=== PATIENT | female | born 1940 | race Caucasian/White ===

== ENCOUNTER → 2018-03-18 | Outpatient (CLI) | payer MEDICARE, BC ==
[~2018-03-18] MED LIST: ASPIRIN 81M81 MG/TA2 PO; BETAPACE 80MG80 MG PO; CENTRUM SILVER1 CTB PO; CITRACAL PLUS1 TAB PO; DITROPAN 5MG TAB5 MG PO; GLUCOTROL 5M5 MG/TAB PO; GLUCOTROL10 MG PO; NORVASC 10MG10 MG PO; PLAVIX 75MG TAB75 MG PO; PREDNISONE1 MG PO; TENORMIN 2525 MG/TAB PO; TYLENOL ARTHRI650 M1 PO; VITAMIN D1000 IU PO; ZOCOR 20MG20 MG; ZOCOR 20MG20 MG PO
== END ==
LOC: MHCPAIN 13:03
DX: M47.817 Spondylosis without myelopathy or radiculopathy, lumbosacral region (principal); M54.16 Radiculopathy, lumbar region
CPT/HCPCS: J1040; Q9967

== ENCOUNTER → 2018-04-21 | Outpatient (CLI) | payer MEDICARE, BC | LOC: MHCPAIN 13:29 | DX: G89.29 Other chronic pain (principal); M47.817 Spondylosis without myelopathy or radiculopathy, lumbosacral region; M54.16 Radiculopathy, lumbar region; M53.3 Sacrococcygeal disorders, not elsewhere classified; M96.1 Postlaminectomy syndrome, not elsewhere classified | CPT/HCPCS: G0463 ==

== ENCOUNTER → 2018-06-02 | Outpatient (CLI) | payer MEDICARE, BC | LOC: COL.RAD 11:35 | DX: M16.12 Unilateral primary osteoarthritis, left hip (principal); I70.202 Unspecified atherosclerosis of native arteries of extremities, left leg ==

== ENCOUNTER → 2018-06-02 | Outpatient (CLI) | payer MEDICARE, BC | LOC: MHCPAIN 10:37 | DX: G89.29 Other chronic pain (principal); M47.817 Spondylosis without myelopathy or radiculopathy, lumbosacral region; M53.3 Sacrococcygeal disorders, not elsewhere classified; M96.1 Postlaminectomy syndrome, not elsewhere classified | CPT/HCPCS: G0463; J1100 ==

== ENCOUNTER → 2018-06-24 | Outpatient (CLI) | payer MEDICARE, BC | LOC: MHCPAIN 12:17 | DX: M47.817 Spondylosis without myelopathy or radiculopathy, lumbosacral region (principal); M53.3 Sacrococcygeal disorders, not elsewhere classified | CPT/HCPCS: G0260; J1040; Q9967 ==

== ENCOUNTER → 2018-07-13 | Outpatient (CLI) | payer MEDICARE, BC | LOC: MHCPAIN 14:07 | DX: G89.29 Other chronic pain (principal); M47.817 Spondylosis without myelopathy or radiculopathy, lumbosacral region; M54.16 Radiculopathy, lumbar region; M53.3 Sacrococcygeal disorders, not elsewhere classified; M96.1 Postlaminectomy syndrome, not elsewhere classified | CPT/HCPCS: G0463 ==

== ENCOUNTER → 2018-08-10 | Outpatient (CLI) | payer MEDICARE, BC | LOC: COL.RAD 08:49 | DX: M79.605 Pain in left leg (principal); M79.604 Pain in right leg; M25.551 Pain in right hip; M25.552 Pain in left hip | CPT/HCPCS: A9503 ==

== ENCOUNTER 2018-08-19 09:35 | Inpatient (IN) | payer MEDICARE, BC ==
[~2018-08-19] VITALS: Ht 167.6 cm; Wt 54.5 kg
[2018-12-15] VITALS (13 sets, daily range): BP systolic 97–148; BP diastolic 52–76; PULSE 63–75; TEMP 97.4–98.5
[2018-12-15] MEDS ORDERED: MOBIC 7.5MG7.5 MG PO (06:07)
[2018-12-15] MEDS ORDERED: ELIQUIS 5MG PO (06:08)
[2018-12-15] MEDS ORDERED: TYLENOL 500MG500 MG PO (06:10)
[2018-12-15] MEDS ORDERED: ULTRAM 50MG TAB50 MG PO (06:11)
[2018-12-15] MEDS ORDERED: LEVEMIR SQ (06:13)
[2018-12-15] MEDS ORDERED: VITAMIN D31000 I1 PO (06:15)
[2018-12-15] MEDS ORDERED: COZAAR 25MG25 MG/TAB PO (06:15)
[2018-12-15] MEDS ORDERED: AZO-CRANBERRY450 MG PO (06:16)
[2018-12-16 04:31] VITALS: BP 155/68; PULSE 63; TEMP 97.5
[2018-12-16 07:08] LABS: HEMOGLOBIN 11.7 g/dl (12.5-16.0)
[2018-12-16 07:10] LABS: HEMATOCRIT 34.4 % (37.0-47.0)
[2018-12-16 07:45] VITALS: BP 148/63; PULSE 58; TEMP 97.5
[2018-12-16 11:48] VITALS: BP 129/49; PULSE 60; TEMP 97.6
[2018-12-16 16:52] VITALS: BP 148/89; PULSE 73; TEMP 97.4
[2018-12-16 20:00] VITALS: BP 152/72; PULSE 74; TEMP 98.3
[2018-12-16] MEDS ORDERED: ROXICODONE 55 MG/TAB PO (21:40)
[2018-12-16] MEDS ORDERED: TYLENOL 500MG500 MG PO (21:41)
[2018-12-17] VITALS (7 sets, daily range): BP systolic 120–155; BP diastolic 58–90; PULSE 78–85; TEMP 98–98.6
[2018-12-17 07:23] LABS: HEMOGLOBIN 11.7 g/dl (12.5-16.0)
[2018-12-17 07:32] LABS: HEMATOCRIT 34.3 % (37.0-47.0)
[2018-12-18 04:23] VITALS: BP 144/83; PULSE 82; TEMP 98.4
[2018-12-18 07:18] LABS: HEMOGLOBIN 11.8 g/dl (12.5-16.0)
[2018-12-18 07:27] VITALS: BP 165/60; PULSE 76; TEMP 97.6
[2018-12-18 07:31] LABS: HEMATOCRIT 34.5 % (37.0-47.0)
[2018-12-18 10:36] VITALS: BP 165/60; PULSE 76; TEMP 97.6
== END 2018-12-18 11:10 | disposition swing bed (61) | DRG 470 ==
LOC: JCC 09-22 09:45
PROVIDERS: Physician Assistant; ADMIT Orthopaedic Surgery
PROC: 0SRB01A Replacement of Left Hip Joint with Metal Synthetic Substitute, Uncemented, Open Approach (ICD-10-PCS; principal; 2018-12-15 07:45)
DX: M16.12 Unilateral primary osteoarthritis, left hip (principal); R64 Cachexia; I48.91 Unspecified atrial fibrillation; Z86.73 Personal history of transient ischemic attack (TIA), and cerebral infarction without residual deficits; I25.2 Old myocardial infarction; I10 Essential (primary) hypertension; E11.9 Type 2 diabetes mellitus without complications; I25.10 Atherosclerotic heart disease of native coronary artery without angina pectoris; J44.9 Chronic obstructive pulmonary disease, unspecified; G89.29 Other chronic pain; E78.00 Pure hypercholesterolemia, unspecified; Z87.442 Personal history of urinary calculi; Z96.651 Presence of right artificial knee joint; Z96.642 Presence of left artificial hip joint; Z87.891 Personal history of nicotine dependence; Z90.49 Acquired absence of other specified parts of digestive tract; Z87.440 Personal history of urinary (tract) infections; Z95.5 Presence of coronary angioplasty implant and graft
CPT/HCPCS: A9284; C1713; C1776; J0690; J1100; J1815; J2250; J2405; J2704; J3010; J7030; J7120